=== PATIENT | female | born 1960 | race Caucasian/White ===

== ENCOUNTER 2020-02-29 08:41 | Outpatient (CLI) | payer OTHER, SELFPAY ==
--- NOTE | ~2020-02-29 | NM_ITS ---
EXAMINATION: NM randell stress w perfusion DATE: 02/29/2020 11:42 INDICATION: Shortness of breath. Procedural cardiovascular exam. TECHNIQUE: Rest images were obtained following intravenous administration of 9.2 mCi Tc99m tetrofosmi n (Myoview). The patient was infused intravenously with Lexiscan (Regadenoson). Then, 30.2 mCi Tc99m tetrofosmin (Myoview) was administered intravenously, and stress images were obtained in supine posit ion. Additional prone post stress images were obtained. Data was reconstructed into short axis and ho rizontal and vertical long axis SPECT images. Gated SPECT images were also obtained. COMPARISON: None. FINDINGS: There is no definite reversible or fixed perfusion abnormality to suggest ischemia or infar ction. There is normal left ventricular chamber size, wall motion and ejection fraction. Left ventr icular ejection fraction measures >70%. IMPRESSION: 1. Normal myocardial perfusion at rest and during stress. 2. Left ventricular ejection fraction measuring >70%. Reviewed, dictated and finalized at location B.
--- NOTE | 2020-02-29 08:52 | EST_ITS ---
Patient Info Name: Brianna Mckeon Age: 60 years : 1960 Gender: Female Ht: 67 in Wt: 250 lbs BSA: 2.37 m2 Exam Date: 02/29/2020 9:52 AM Exam Location: [facility] Stress Patient Status: Outpatient Admit Date: 02/29/2020 Staff Ordering Physician: Efra Valdes PA-C Attending Provider: Efra Valdes PA-C Exercise Technologist: Ingrid Mari RDCS Exercise Physician: Aung Garcia DO Exam Type: CA stress randell w NM Study Info Indications Z01.810 - Encounter for preprocedural cardiovascular examination A regadenoson stress test was performed. Summary 1. 1. Negative lexiscan stress test for ischemic ST changes by ECG criteria. 2. 2. Stable hemodynamics throughout the test. 3. 3. Nuclear scan to follow and will be reported separately. Please correlate with it. 4. 4. Patient informed of the above results. Protocol: Lexiscan Stress ECG Details Stage: REST Duration (min): 6 min : 56 sec HR (bpm): 55 SBP (mmHg): 124 DBP (mmHg): 78 Stage: REST Duration (min): 14 min : 32 sec HR (bpm): 61 SBP (mmHg): 124 DBP (mmHg): 78 Stage: STAGE 1 Duration (min): 1 min : 0 sec HR (bpm): 75 SBP (mmHg): 138 DBP (mmHg): 77 Stage: RECOVERY Duration (min): 1 min : 0 sec HR (bpm): 85 SBP (mmHg): 138 DBP (mmHg): 77 Stage: RECOVERY Duration (min): 2 min : 0 sec HR (bpm): 83 SBP (mmHg): 148 DBP (mmHg): 72 Stage: RECOVERY Duration (min): 3 min : 0 sec HR (bpm): 78 SBP (mmHg): 149 DBP (mmHg): 72 Stage: RECOVERY Duration (min): 4 min : 0 sec HR (bpm): 73 SBP (mmHg): 149 DBP (mmHg): 72 Stage: RECOVERY Duration (min): 5 min : 0 sec HR (bpm): 77 SBP (mmHg): 149 DBP (mmHg): 72 Stage: RECOVERY Duration (min): 5 min : 26 sec HR (bpm): 78 SBP (mmHg): 140 DBP (mmHg): 76 Rest HR: 61 bpm Peak HR: 91 bpm Rest Sys BP: 124 mmHg Peak Sys BP: 149 mmHg Max Pred HR: 158 bpm % Max Pred HR: 58 % Target HR: 134 bpm Max RPP: 13,559 bpm*mmHg Termination Reason: Completed protocol Cardiac Symptoms: Shortness of breath Total Time: 1 min : 0 sec Rest Brown BP: 78 mmHg Peak Brown BP: 72 mmHg Total Dose: 0.4 mg Resting ECG Sinus rhythm. Stress ECG No ST changes. Arrhythmias None. Report Signatures
== END 2020-02-29 08:42 | disposition home or self-care (01) ==
PROVIDERS: PCP Family Medicine; Visit Provider Physician Assistant Medical
DX: Z01.810 Encounter for preprocedural cardiovascular examination (principal)
CPT/HCPCS: 78452; 93017; A9502; J2785

== ENCOUNTER 2020-05-28 20:34 | Emergency (ER) | payer OTHER, SELFPAY ==
[2020-05-28 21:03] VITALS: BP 159/83; PULSE 81; RESP 20; TEMP 35.7; O2SAT 95
[2020-05-28 21:46] VITALS: BP 159/83; PULSE 81; RESP 18; TEMP 35.8; O2SAT 95
[2020-05-28] MEDS: TETANUS,DIPHTHERIA,AC PERTUSSIS ADULT (0.5 ML) BOOSTRIX IM (22:32)
--- NOTE | 2020-05-28 23:39 | ED.GENADULT ---
HPI - General Adult General Chief complaint: Wound/Laceration Stated complaint: ANIMAL BITE Time Seen by Provider: 05/28/20 21:54 Source: patient Mode of arrival: ambulatory Limitations: no limitations History of Present Illness HPI narrative: Patient 60-year-old female who presents with dog scratch or bite to the right hand that occurred just prior to arrival patient was attempting to get her dog that had run away when the dog pulled possibly biting or scratching the dorsal surface of the right hand where she now has 3 wounds patient notes mild aching pain worse with touch and activity patient notes her tetanus is not up-to-date patient on arrival resting comfortably does not appear uncomfortable has no other complaints Related Data Home Medications Medication Instructions Recorded Confirmed aspirin 81 mg tablet,delayed 81 mg PO DAILY 07/04/19 release Allergies Allergy/AdvReac Type Severity Reaction Status Date / Time Iodinated Contrast Media Allergy Unknown Hives Verified 05/28/20 21:08 iodine Allergy Unknown Hives Verified 05/28/20 21:08 tramadol Allergy Unknown Nausea Verified 05/28/20 21:08 Contrast Media Allergy Unknown HIVES Uncoded 06/21/18 12:00 Review of Systems Review of Systems: All systems reviewed & are unremarkable except as noted in HPI and below PMFSH Past Medical History Medical History (Updated 05/28/20 @ 23:48 by Bayron Jimenez PA-C) Adopted Breast cyst (~1971) Hepatic steatosis Leiomyoma of uterus Right radial head fracture (03/22/19) Ventral hernia Surgical History Surgical History History of hysterectomy (~2002) History of tonsillectomy (~1967) Social History Social History Smoking status: Smoker, status unknown Alcohol intake: never Exam Narrative: Exam Narrative: GENERAL: Well-appearing, well-nourished, and in no acute distress. HEAD: Normocephalic, atraumatic. EYES: PERRLA and EOMI. ENT: Nares clear, no rhinorrhea or epistaxis. Mucous membranes moist. EXTREMITIES: Normal range of motion. No edema. SKIN: Warm, dry, no rash. Patient with irregular laceration involving the dorsal surface of the right hand measuring 1 cm in length. Patient with 2-1/2 cm irregular laceration dorsal surface right hand. Less than half centimeter smaller superficial laceration of the dorsal surface of the right hand NEURO: No focal deficits. Alert and oriented x3. Neurovascularly intact. Capillary refill less than 2 seconds PSYCH: Normal mood and affect. Course Course Emergency Course: Patient's wounds were repaired in the emergency department wounds were closed with Steri-Strips due to the risk for infection secondary to possible bite as the cause patient otherwise in the room in no distress had tetanus updated provided with reasons to return and agrees to do so if symptoms worsen Vital Signs Vital signs: Vital Signs Temperature 96.3 F L 05/28/20 21:03 Pulse Rate 81 05/28/20 21:03 Respiratory Rate 20 05/28/20 21:03 Blood Pressure 159/83 H 05/28/20 21:03 Pulse Oximetry 95 05/28/20 21:03 Temperature 96.5 F L 05/28/20 21:46 Pulse Rate 81 05/28/20 21:46 Respiratory Rate 18 05/28/20 21:46 Blood Pressure 159/83 H 05/28/20 21:46 Pulse Oximetry 95 05/28/20 21:46 Procedures Laceration Laceration 1: Date: 05/28/20 Time: 23:46 Site: upper extremity Side (If applicable): right Size (cm): 2.5 Description: irregular Depth: simple, single layer Local Anesthetic: other anesthetic Pre-repair: wound explored, irrigated and irrigated extensively ====== Skin Level ====== Skin layer closed with: steri strips ====== Subcutaneous Layer ====== ====== Muscle Layer ====== ====== Tendon Layer ====== Laceration 2: Date: 05/28/20 Time: 23:46 Site:
[2020-05-29 00:06] VITALS: BP 160/85; PULSE 83; RESP 20; TEMP 36.1; O2SAT 96
== END 2020-05-29 00:08 | disposition home or self-care (01) ==
PROVIDERS: Emergency Provider Emergency Medicine; PCP Family Medicine
DX: S61.411A Laceration without foreign body of right hand, initial encounter (principal); X58.XXXA Exposure to other specified factors, initial encounter; Z23 Encounter for immunization
CPT/HCPCS: 12001; 90471; 90715; 99283

== ENCOUNTER 2020-09-08 13:43 | Emergency (ER) | payer OTHER, SELFPAY ==
--- NOTE | ~2020-09-08 | XR_ITS ---
XR finger 4th LT min 2V 09/08/2020 15:11 Indication: Dog bite. Left fourth finger pain. Procedure: 4 views left fourth finger Comparison: 04/07/2019 Findings: Mild polyarticular osteoarthritis. Osteopenia. Moderate soft tissue swelling surrounding th e PIP joint. No foreign bodies. Impression: 1: No acute fracture. Reviewed, dictated and finalized at location A. Impression: 1: No acute fracture.
[2020-09-08 14:16] VITALS: BP 177/81; PULSE 76; RESP 16; TEMP 37; O2SAT 100
--- NOTE | 2020-09-08 14:55 | ED.WOUNDLAC ---
HPI - Wound/Laceration General Chief Complaint: Wound/Laceration Stated Complaint: DOG BITE Source: patient and RN notes reviewed Mode of arrival: ambulatory Limitations: no limitations History of Present Illness HPI narrative: 60-year-old female presents to the [facility] with complaints of a dog bite. Patient reports that last night she was playing with her dog when he mistakenly bit her finger, states the dog is up-to-date on vaccines. Her last tetanus was May 2020. Has an open puncture wound left ring finger. Had already removed her rings. Abrasions noted to the middle finger. Left ring finger swollen. Decreased range of motion of the PIP and DIP. Sensation intact distal to injury with capillary refill under 2 seconds. Related Data Home Medications Medication Instructions Recorded Confirmed aspirin 81 mg tablet,delayed 81 mg PO DAILY 07/04/19 09/08/20 release Allergies Allergy/AdvReac Type Severity Reaction Status Date / Time Iodinated Contrast Media Allergy Unknown Hives Verified 05/28/20 21:08 iodine Allergy Unknown Hives Verified 05/28/20 21:08 tramadol Allergy Unknown Nausea Verified 05/28/20 21:08 Contrast Media Allergy Unknown HIVES Uncoded 06/21/18 12:00 Review of Systems Review of Systems: Narrative: CONSTITUTIONAL: Denies fever, chills, or sweats. EYES: Denies visual changes, redness, or discharge. ENT: Denies rhinorrhea, congestion, sore throat, or otalgia. CARDIOVASCULAR: Denies chest pain, palpitations, or edema. RESPIRATORY: Denies cough or dyspnea. GASTROINTESTINAL: Denies abdominal pain, nausea, vomiting, or diarrhea. GENITOURINARY: Denies dysuria or hematuria. SKIN: Denies rash or itching. Puncture wound left ring finger, abrasions noted middle finger MUSCULOSKELETAL: Denies back pain. Swelling, pain DIP/PIP left ring finger. NEUROLOGIC: Denies headache, numbness, or weakness. PSYCHIATRIC: Denies anxiety or depression. All other systems reviewed are negative, except as documented in HPI. [facility] Past Medical History Medical History (Updated 09/09/20 @ 08:06 by Debbie Wharton) Adopted Breast cyst (~1971) Hepatic steatosis Leiomyoma of uterus Right radial head fracture (03/22/19) Ventral hernia Surgical History Surgical History History of hysterectomy (~2002) History of tonsillectomy (~1967) Social History Social History Smoking status: Smoker, status unknown Alcohol intake: never Comments At the time of my signature, I reviewed and agree with the nursing past medical, surgical, social, and family history. There is no relevant family history pertinent to the patient complaint. Exam Narrative: Exam Narrative: GENERAL: This is a well-nourished, well-developed patient, in no apparent distress. HEAD: normocephalic, atraumatic. EYES: PERRL. Sclera clear/white. Vision is grossly intact. EARS: External ears normal NECK: Neck supple, non-tender. CARDIOVASCULAR: Regular rate and rhythm without murmurs, gallops, or rubs. Capillary refill on all 5 fingers under 2 seconds. RESPIRATORY: Clear to auscultation. Breath sounds equal bilaterally. No wheezes, rales, or rhonchi. GASTROINTESTINAL: Abdomen soft, non-tender. SKIN: warm, intact with no suspicious lesions or rash, good texture and turgor. Puncture wound left ring finger. multiple abrasions noted to ring and middle finger. NEURO: awake, alert, and oriented to person, place and time. There were no obvious focal neurologic abnormalities. EXTREMITIES: No joint tenderness, effusion, or edema noted. BACK: Nontender without deformity. No CVA tenderness. Course Vital Signs Vital signs: Vital Signs Temperature 98.6 F 09/08/20 14:16 Pulse Rate 76 09/08/20 14:16 Respiratory Rate 16 09/08/20 14:16 Blood Pressure 177/81 H 09/08/20 14:16 Pulse Oximetry 100 09/08/20 14:16 Temperature 98.6 F 09/08/20 14:16 Pulse R
== END 2020-09-08 16:03 | disposition home or self-care (01) ==
PROVIDERS: Emergency Provider Nurse Practitioner; PCP Family Medicine
DX: S61.234A Puncture wound without foreign body of right ring finger without damage to nail, initial encounter (principal); W54.0XXA Bitten by dog, initial encounter
CPT/HCPCS: 73140; 99213; G0463

== ENCOUNTER 2023-02-19 09:01 | Outpatient (CLI) | payer MEDICARE, SELFPAY ==
[2023-02-19 17:06] LABS: Basophils Absolute Auto 0.1 K/mm3 (0.0-0.1); Basophils Percent Auto 0.9 % (0.2-1.2); Eosinophils Absolute Auto 0.1 K/mm3 (0-0.3); Eosinophils Percent Auto 1.1 % (0-4.4); Hematocrit 46.5 % (37.0-47.0); Immature Granulocyte Absolute 0.06 K/mm3 (0.00-0.031); Immature Granulocyte Percent A 0.7 % (0-0.5); Lymphocytes Absolute Auto 2.32 K/mm3 (0.9-3.2); Lymphocytes Percent Auto 28.8 % (18.3-44.2); Mean Corpuscular HGB Conc 32.3 g/dl (32-36); Mean Corpuscular Volume 86.8 fl (80-100); Mean Platelet Volume 11.7 fl (7.4-10.4); Monocytes Absolute Auto 0.7 K/mm3 (0.1-0.6); Monocytes Percent Auto 9.1 % (2.6-8.5); Neutrophils Absolute Auto 4.8 K/mm3 (1.3-6.7); Neutrophils Percent Auto 59.4 % (45.5-73.1); Platelet Count Result 241 k/mm3 (150-375); Red Blood Count 5.36 M/mm3 (4.2-5.4); Red Cell Distribution Width 15.1 % (11.5-14.5); White Blood Count 8.1 K/mm3 (4.5-10.0)
[2023-02-19 17:18] LABS: Alanine Aminotransferase 26 U/L (6-35); Albumin Level 4.3 g/dL (3.5-5.1); Alkaline Phosphatase 75 U/L (38-126); Anion Gap 3 mmol/L (8-16); Aspartate Amino Transferase 29 U/L (14-36); Bilirubin,Total 0.5 mg/dL (0.2-1.3); Blood Urea Nitrogen 18 mg/dL (7-17); Calcium 9.4 mg/dL (8.4-10.2); Carbon Dioxide 34 mmol/L (22-30); Chloride 98 mmol/L (98-107); Cholesterol 133 mg/dL (0-200); Estimated Glomerular Filt Rate > 60; Glucose 118 mg/dL (65-110); HDL Direct 46 mg/dL; Potassium 3.4 mmol/L (3.4-5.0); Sodium 135 mmol/L (137-145); Triglycerides 95 mg/dL (<150)
[2023-02-19 17:19] LABS: Hemoglobin A1C 6.5 % (<5.7)
[2023-02-19 17:32] LABS: Creatinine Urine 26.3 mg/dL
[2023-02-19 17:34] LABS: LDL Cholesterol Direct 68 mg/dL
[2023-02-19 17:56] LABS: Thyroid Stimulating Hormone Reflex 0.984 uIU/mL (0.465-4.68)
[2023-02-19 18:06] LABS: MALB Creatinine Ratio < 22.8 mg/g (0-30); Microalbumin Urine Random < 6.0 mg/L (0-16.7)
== END 2023-02-19 09:02 | disposition home or self-care (01) ==
PROVIDERS: PCP Family Medicine; Visit Provider Physician Assistant
DX: E11.9 Type 2 diabetes mellitus without complications (principal); E78.2 Mixed hyperlipidemia; I10 Essential (primary) hypertension
CPT/HCPCS: 36415; 80053; 80061; 82043; 83036; 84443; 85025

== ENCOUNTER → 2023-02-26 10:35 | Outpatient (CLI) | payer MEDICARE, SELFPAY ==
--- NOTE | ~2023-02-26 | CT_ITS ---
EXAMINATION:CT chest high resolution wo ky DATE: 02/26/2023 10:53 INDICATION: Ascending aortic aneurysm without rupture. TECHNIQUE: Computed tomography (CT) of the chest was performed without intravenous contrast. Automate d exposure control and iterative reconstruction technique were employed. The dose-length product (DLP ) was 572.23 mGy-cm. COMPARISON: CT abdomen and pelvis 09/13/2017 FINDINGS: There is mild emphysema. There is minimal atelectasis in the lungs. No pleural effusion. Th e heart size is normal. No pericardial effusion. There is mild aortic atherosclerosis. Ascending aort a measures 3.6 cm, which is normal. There is moderate thoracic spondylosis. IMPRESSION: 1. Mild aortic atherosclerosis. No aneurysm. 2. Mild emphysema. Reviewed, dictated and finalized at location E.
== END ==
PROVIDERS: PCP Physician Assistant; Visit Provider Physician Assistant
DX: I71.40 Abdominal aortic aneurysm, without rupture, unspecified (principal); I70.0 Atherosclerosis of aorta; J43.9 Emphysema, unspecified
CPT/HCPCS: 71250

== ENCOUNTER 2023-04-02 14:25 | Outpatient (CLI) | payer MEDICARE, SELFPAY ==
--- NOTE | 2023-04-02 15:58 | WPDPFTINT ---
PFT Procedure Performed PFT Procedure Performed Spirometry with Pre/Post Bronchodilator Plethysmography (Lung Vol) Diffusing Cap (DLCO) Flow Vol Loop PFT Interpretation This is a pulmonary function test with pre and post-bronchodilator spirometry, plethysmography and diffusing capacity. The test was performed and results interpreted in accordance with the 2019 and 2005 ATS/ERS Task Force guidelines respectively using the Global Lung Function Initiative-2012 reference equations. Patient demonstrated good effort and cooperation. Reproducibility criteria were met. The quality of the pre bronchodilator spirometry maneuver was Grade A and post bronchodilator spirometry maneuver was Grade B. Findings: Spirometry: The contour the inspiratory and expiratory flow tracing are normal. The pre bronchodilator FVC is 3.01 L, 90% predicted. The pre bronchodilator FEV1 is 2.53 L, 98% predicted. The pre bronchodilator FEV1: FVC ratio is 84%. The post bronchodilator FVC is 3.00 L, representing no change. The post bronchodilator FEV1 is 2.45 L, representing a 3% decrease. The post bronchodilator FEV1: FVC ratio is 82%. Plethysmography: The total lung capacity is 4.60 L, 84% predicted. The functional residual capacity is 1.88 L, 60% predicted. The residual volume is 1.59 L, 71% predicted. Diffusing capacity: The diffusing capacity unadjusted for hemoglobin and carboxyhemoglobin is 19.5, 87% predicted. The diffusing capacity adjusted for alveolar volume is 4.29, 101% predicted. Impression: The spirometry is normal without evidence of an obstructive abnormality. There is no significant improvement after inhaling a single dose of albuterol. The total lung capacity and residual volume are normal with a decreased functional residual capacity. This is an abnormal but nonspecific lung volume pattern. The diffusing capacity is normal. There are no prior studies for comparison
== END 2023-04-02 14:26 | disposition home or self-care (01) ==
PROVIDERS: PCP Family Medicine; Visit Provider Physician Assistant
DX: J43.9 Emphysema, unspecified (principal)
CPT/HCPCS: 94060; 94726; 94729

== ENCOUNTER 2023-05-31 06:49 | Emergency (ER) | payer MEDICARE, SELFPAY ==
[2023-05-31 06:51] VITALS: BP 150/81; PULSE 77; RESP 16; TEMP 36.6; O2SAT 100
[2023-05-31 07:22] VITALS: BP 160/79; PULSE 72; RESP 16; O2SAT 99
--- NOTE | 2023-05-31 07:22 | ED.GENADULT ---
HPI - General Adult General Chief complaint: Urogenital-Female Stated complaint: I can't pee and pain in my back Time Seen by Provider: 05/31/23 07:09 History of Present Illness HPI narrative: patient is a 63-year-old female who presents ER with discoloration of her urine. Began this morning. Associated with dysuria and urinary frequency. She feels like she cannot fully empty her bladder. She has mild discomfort in the low back that is aching. No alleviating factors. No fevers or chills or sweats. No nausea or vomiting. Has history kidney stones but this feels different. Related Data Home Medications Medication Instructions Recorded Confirmed aspirin 81 mg tablet,delayed 81 mg PO DAILY 07/04/19 03/19/23 release diphenhydramine 25 1 tablet PO QHS 03/19/23 03/19/23 mg-acetaminophen 500 mg tablet (Tylenol PM Extra Strength) Allergies Allergy/AdvReac Type Severity Reaction Status Date / Time Iodinated Contrast Media Allergy Unknown Hives Verified 05/31/23 07:15 iodine Allergy Unknown Hives Verified 05/31/23 07:15 Contrast Media Allergy Unknown HIVES Uncoded 05/31/23 07:15 Review of Systems Review of Systems: All systems reviewed & are unremarkable except as noted in HPI and below Constitutional: Constitutional: Denies chills and Denies fever(s) Gastrointestinal: Gastrointestinal: Denies abdominal pain, Denies nausea and Denies vomiting Genitourinary: Genitourinary: Reports nocturia, Reports dysuria, Reports pelvic pain and Reports flank pain Musculoskeletal: Musculoskeletal: Reports back pain, Denies joint swelling and Denies muscle cramps PMFSH Past Medical History Medical History Adopted Aortic aneurysm Breast cyst (~1971) Hepatic steatosis Leiomyoma of uterus Right radial head fracture (03/22/19) Ventral hernia Surgical History Surgical History History of back surgery History of hernia repair (~07/30/12) History of hysterectomy (~2002) TAHBSO History of tonsillectomy (~1967) Social History Social History (Updated 03/19/23 @ 07:34 by Eulalia Alonso) Social History: Caffeine-daily Years smoked: 40 Smoking status: Current every day smoker Alcohol intake: current Alcohol use details: occasional Substance use: never Substance use type: does not use Lack of Transportation: No Lack of Food: Never True Current Housing: I Have Housing Concerned About Future Housing: No Difficulty Paying Gas/Electric Bills: No Difficulty Paying for Meds: No Currently Unemployed: No Education: High School Diploma/GED Difficulty w/ Childcare or Family Care: No Living arrangements: with family Exam Narrative: GENERAL: Well-appearing, well-nourished, and in no acute distress. HEAD: Normocephalic, atraumatic. ENT: Mucous membranes moist. CHEST: Clear to auscultation. No respiratory distress. HEART: Regular rate and rhythm. Normal peripheral pulses. Back: No CVA tenderness. Discomfort is located left low lumbar region near the iliac crest. EXTREMITIES: Normal range of motion. No edema. NEURO: No focal deficits. Alert and oriented x3. PSYCH: Normal mood and affect. Course Course Emergency Course: Patient informed of results. Discussed treatment plan. Patient verbalized understanding. Discharge home. Bladder scan with 135 mL, patient has been able to urinate since then. Vital Signs Vital signs: Vital Signs Temperature 97.8 F 05/31/23 06:51 Pulse Rate 77 05/31/23 06:51 Respiratory Rate 16 05/31/23 06:51 Blood Pressure 150/81 H 05/31/23 06:51 Pulse Oximetry 100 05/31/23 06:51 Oxygen Delivery Room Air 05/31/23 06:51 Temperature 97.8 F 05/31/23 06:51 Pulse Rate 72 05/31/23 07:22 Respiratory Rate 16 05/31/23 07:22 Blood Pressure 160/79 H 05/31/23 07:22 Pulse Oximetry 99 05/31/23 07:22 Oxygen Delivery Room Air
[2023-05-31 07:48] LABS: Appearance Urine Turbid (Clear); Bacteria Urine 1+ /hpf; Bilirubin Urine Negative (Negative); Blood Urine 3+ (Negative); Color Urine Dark Yellow (Yellow); Glucose Urine UA Negative (Negative); Ketones Urine Negative (Negative); Leukocyte Esterase Ur 3+ LEU/UL (Negative); Need Manual Microscopic Reviewed; Nitrate Urine Positive (Negative); Non Pathogenic Casts 0-2; Protein Urine 4+ mg/dL (Negative); RBC Urine >100 /hpf (0-2); Squamous Epithelial Cell Urine Few /hpf (Few); WBC Urine >100 /hpf
[2023-05-31 07:49] LABS: Add Urine Microscopic? YES
[2023-05-31] MEDS: KETOROLAC 30 MG/ML VIAL (*BKC) IM (08:07)
[2023-05-31 08:10] VITALS: BP 134/71; PULSE 74; RESP 16; O2SAT 98
== END 2023-05-31 08:24 | disposition home or self-care (01) ==
PROVIDERS: Emergency Medicine; Emergency Provider Emergency Medicine; PCP Family Medicine
DX: N39.0 Urinary tract infection, site not specified (principal); F17.200 Nicotine dependence, unspecified, uncomplicated; Z90.710 Acquired absence of both cervix and uterus; Z90.722 Acquired absence of ovaries, bilateral; Z90.79 Acquired absence of other genital organ(s); Z79.82 Long term (current) use of aspirin
CPT/HCPCS: 81001; 87077; 87086; 87186; 96372; 99283; J1885

== ENCOUNTER 2023-06-09 12:56 | Outpatient (NON) | payer MEDICARE, SELFPAY | END 2023-06-09 12:57 | disposition home or self-care (01) | LOC: ANHGOSHLAB 12:58 | PROVIDERS: PCP Family Medicine; Visit Provider Nurse Practitioner Family | DX: N39.0 Urinary tract infection, site not specified (principal) | CPT/HCPCS: 87086 ==

== ENCOUNTER → 2023-06-17 08:06 | Outpatient (CLI) | payer MEDICARE, SELFPAY ==
--- NOTE | ~2023-06-17 | US_ITS ---
Renal-Bladder ultrasound Clinical History: Abdominal pain Technique: Real-time sonographic imaging of the kidneys and urinary bladder was performed. Findings: The right kidney measures 10.8 cm in length and the left kidney measures 11.4 cm. There is mild left hydronephrosis. No right hydronephrosis. No renal stone evident. Renal cortical echogenicit y is within normal limits. No solid renal mass lesion is identified. Right renal cyst present. The urinary bladder is partially distended at the time of this exam. No intraluminal echoes are ident ified. No abnormal wall thickening is seen. Multiple echogenic, shadowing gallstones are incidentally noted. Impression: Mild left hydronephrosis. Cholelithiasis incidentally noted. Reviewed, dictated and finalized at [facility]. NG STRAP CLOSER Impression: Mild left hydronephrosis. Cholelithiasis incidentally noted.
== END ==
PROVIDERS: PCP Family Medicine; Visit Provider Nurse Practitioner Family
DX: N13.30 Unspecified hydronephrosis (principal)
CPT/HCPCS: 76775

== ENCOUNTER → 2023-07-09 09:41 | Outpatient (CLI) | payer MEDICARE, SELFPAY ==
--- NOTE | ~2023-07-09 | MM_ITS ---
EXAMINATION: MM screening lillie BI w feliciano HISTORY: Screening mammogram TECHNIQUE: Craniocaudal and mediolateral oblique 3-D tomosynthesis images were obtained and synthetic 2-D images were generated. CAD analysis was submitted and interpreted. COMPARISON: No prior mammogram is available for comparison at this institution. BREAST PARENCHYMAL COMPOSITION: There are scattered areas of fibroglandular density. FINDINGS: RIGHT BREAST: No suspicious mass, calcification, or architectural distortion are identified to sugges t malignancy. LEFT BREAST: There are masses in the subareolar aspect of the breast as well as in the anterior/middl e third of the lower breast 5 cm from the nipple. IMPRESSION: 1. Left breast masses. 2. Additional mammographic views and possible breast ultrasound are recommended. BI-RADS Category 0: Incomplete: Needs additional imaging evaluation. Reviewed, dictated and finalized at location A. ING SUPERVISOR IMPRESSION: 1. Left breast masses. 2. Additional mammographic views and possible breast ultrasound are recommended . BI-RADS Category 0: Incomplete: Needs additional imaging evaluation.
--- NOTE | ~2023-07-09 | DEXA_ITS ---
Bone Density Report Name: CARLOS ORTIZ Age: 63 Sex: Female Ethnicity: White Date of : 1960 Indication: postmenopausal; screening for osteoporosis; height loss; prior fracture; hysterectomy; Referring Provider: Andrews Murcia Study: Bone densitometry was performed. Exam Date: July 09, 2023 Accession number: [id number] Bone Density: Region BMD T-score Z-score Classification AP Spine (L1-L4) 1.018 -0.3 1.5 Normal Femoral Neck (Left) 0.776 -0.7 0.9 Normal Total Hip (Left) 0.911 -0.3 1.0 Normal Femoral Neck (Right) 0.763 -0.8 0.8 Normal Total Hip (Right) 0.863 -0.6 0.6 Normal Total Hip Mean 0.887 -0.5 0.8 Normal World Health Organization criteria for BMD impression classify patients as: Normal (T-score at or above -1.0), Osteopenia (T-score between -1.0 and -2.5), or Osteoporosis (T-score at or below -2.5). 10-year Fracture Risk: FRAX not reported because: All T-scores for Spine Total, Hip Total, Femoral Neck at or above -1.0 Clinical Information Provided by Patient: Has had a low trauma fracture Smokes Has the following medical conditions: Hysterectomy, mild emphysema but no treatments Patient maximum height was 68 Menopause Age: 46 No regular weight bearing exercise Drinks caffeinated beverages Onset of menses at age 8 Number of children 3 Impression: The patient has normal bone mass. The patient has risk factors, including: smoking, previous fracture. Discussion: BONE DENSITY IS ABOVE THE MINIMUM DESIRABLE LEVEL AT ALL SKELETAL SITES TESTED. This patient?s bone mineral density is above the minimum desirable level (T-score -1.0 or better) at all sites measured. The patient should follow a healthful lifestyle (good nutrition with adequate calcium and vitamin D, and appropriate weight-bearing exercise). Follow-Up: Consider repeating this study in 5 years or sooner if there is some new clinical indication. Reported by: [facility] on 07/09/2023 10:14:00 AM. Reviewed, dictated and finalized at location A. [facility]
== END ==
PROVIDERS: PCP Physician Assistant; Visit Provider Physician Assistant
DX: Z12.31 Encounter for screening mammogram for malignant neoplasm of breast (principal); Z78.0 Asymptomatic menopausal state; R92.8 Other abnormal and inconclusive findings on diagnostic imaging of breast
CPT/HCPCS: 77063; 77067; 77080

== ENCOUNTER → 2023-08-13 07:30 | Outpatient (CLI) | payer MEDICARE, SELFPAY ==
--- NOTE | ~2023-08-13 | MMUS_ITS ---
EXAMINATION: MM diagnostic lillie LT w feliciano, US breast LT limited HISTORY: Left breast masses reported on 07/09/2023 screening mammogram TECHNIQUE: Additional 3-D tomosynthesis images of the left breast were performed and synthetic 2-D im ages were generated. CAD analysis was submitted and interpreted. High resolution limited left breast ultrasound was performed at subareolar area and upper outer quadrant. COMPARISON: 07/09/2023 bilateral screening mammogram FINDINGS: MAMMOGRAPHIC FINDINGS: Small circumscribed benign-appearing low-density opacities are noted in the upper outer quadrant, lik marilee small cysts or lymph nodes. There is a benign-appearing low-density circumscribed approximately 6 mm opacity in the lateral subar eolar area. ULTRASOUND: 2:00 7 cm from nipple: 1.9 x 5.8 x 3.6 mm circumscribed sonolucency with a thin septation, without maharaj spicious shadowing, consistent benign septated cyst 3:00 5 cm from nipple: 1.7 x 2.7 x 2.8 mm circumscribed sonolucency, consistent with small cyst Subareolar area: 4.2 x 6.7 x 7.2 mm circumscribed parallel sonolucency consistent with simple cysts. No suspicious mass or shadowing is detected in the subareolar area are upper quadrant. IMPRESSION: 1. Benign cysts; no mammographic or ultrasound evidence of malignancy 2. Routine annual mammographic screening is recommended BI-RADS Category 2: Benign finding(s). Reviewed, dictated and finalized at location B. NOGRAPHER GEOLOGICAL IMPRESSION: 1. Benign cysts; no mammographic or ultrasound evidence of malignancy 2. Routine annual mammographic screening is recommended BI-RADS Category 2: Benign finding(s).
== END ==
PROVIDERS: PCP Family Medicine; Visit Provider Nurse Practitioner Family
DX: N63.20 Unspecified lump in the left breast, unspecified quadrant (principal); R92.8 Other abnormal and inconclusive findings on diagnostic imaging of breast
CPT/HCPCS: 76642; 77061; 77065; G0279

== ENCOUNTER 2023-12-23 07:00 | Outpatient (CLI) | payer MEDICARE, SELFPAY ==
--- NOTE | ~2023-12-23 | MR_ITS ---
MR cervical spine wo con Ordering provider: Alissa Reid, KITCHENHAND-C History: 63 years Female with . Cervical radiculopathy . Comparison: None. Technique: MRI cervical spine without contrast. FINDINGS: CERVICAL SPINAL CORD/CRANIAL CERVICAL JUNCTION: Normal in signal and caliber. CERVICAL VERTEBRAL BODIES: Normal height and alignment. Normal marrow signal. DISK SPACES: Narrowing of the disc C5-C6. C2-C3: No stenosis. . C3-C4: No stenosis. C4-C5: No stenosis. C5-C6: Mild spinal canal stenosis secondary to broad based disc bulge. bilateral narrowing of the fo ramina and the root compression. C6-C7: No stenosis. C7-T1: No stenosis. VISUALIZED PARASPINOUS SOFT TISSUES: Normal. IMPRESSION: 1. No acute osseous abnormality. 2. Diffuse disc bulge at the level of C5-C6 with bilateral narrowing of the foramina and nerve root compression. Mild spinal canal stenosis. Reviewed, dictated and finalized at location A. IMPRESSION: 1. No acute osseous abnormality. 2. Diffuse disc bulge at the level of C5-C6 with bilateral narrowing of the fo ramina and nerve root compression. Mild spinal canal stenosis.
== END 2023-12-23 07:01 ==
LOC: MICIMG 07:00
PROVIDERS: PCP Family Medicine; Visit Provider Nurse Practitioner Family
DX: M50.322 Other cervical disc degeneration at C5-C6 level (principal); M48.02 Spinal stenosis, cervical region
CPT/HCPCS: 72141

== ENCOUNTER 2024-03-07 14:39 | Outpatient (CLI) | payer MEDICARE, SELFPAY ==
--- NOTE | ~2024-03-07 | CT_ITS ---
EXAMINATION:CT lung screening DATE: 03/07/2024 14:58 INDICATION: Personal history of nicotine dependence. Current smoker with 55 pack year history. TECHNIQUE: Computed tomography (CT) of the chest was performed without intravenous contrast. Automate d exposure control and iterative reconstruction technique were employed. The dose-length product (DLP ) was 69.46 mGy-cm. COMPARISON: Chest CT 02/26/2023 FINDINGS: There is mild emphysema. There is mild dependent atelectasis bilaterally. No pleural effusi on. The heart size is normal. There are coronary artery calcifications. No pericardial effusion. Ther e is moderate thoracic spondylosis. IMPRESSION: 1. Lung-RADS category 1: Negative. Continue annual screening with noncontrast low-dose chest CT in 12 months. Reviewed, dictated and finalized at location A. IMPRESSION: 1. Lung-RADS category 1: Negative. Continue annual screening with noncontrast l ow-dose chest CT in 12 months.
== END 2024-03-07 14:40 | disposition home or self-care (01) ==
LOC: MICIMG 14:39
PROVIDERS: PCP Physician Assistant; Visit Provider Physician Assistant
DX: Z12.2 Encounter for screening for malignant neoplasm of respiratory organs (principal); Z87.891 Personal history of nicotine dependence
CPT/HCPCS: 71271

== ENCOUNTER 2024-10-18 09:09 | Outpatient (CLI) | payer MEDICARE, SELFPAY ==
--- NOTE | ~2024-10-18 | MR_ITS ---
EXAMINATION: MR foot LT wo con DATE: 10/18/2024 09:38 INDICATION: Left foot stress fracture with 5 weeks of pain at the lateral forefoot. TECHNIQUE: Magnetic resonance imaging (MRI) of the left fore/mid foot was performed without intraveno us contrast. Sequences included sagittal T1-weighted FSE, sagittal fluid sensitive FSE STIR, coronal PD-weighted FS FSE, coronal T1-weighted FSE, axial PD-weighted FS FSE, and axial PD-weighted FSE. COMPARISON: None FINDINGS: Bone alignment is normal. There is mild polyarticular osteoarthritis at multiple joints in the mid an d forefoot. There is subarticular edema-like signal change at the naviculocuneiform and third and fou rth tarsal metatarsal joints. No erosions to suggest an inflammatory arthritis. Small low signal inte nsity bone island at the base of the first proximal phalanx. Bone marrow signal is otherwise normal t hroughout with no stress reaction, fracture or pathologic marrow replacing process. Physiologic amoun t fluid in the joint spaces. No tenosynovitis, bursitis or other abnormal fluid collections. The Lisf ranc ligament complex as well as the collateral ligament complex at the metatarsophalangeal and inter phalangeal joints are normal. The visualized portions of the flexor and extensor tendons are normal. Visualized intrinsic musculature of the foot is unremarkable. There are some subcutaneous edema over the dorsum of the forefoot. IMPRESSION: 1. Mild polyarticular osteoarthritis in the mid and forefoot. No stress reaction/fracture or other ac squaxin osseous abnormality. Reviewed, dictated and finalized at location A. IMPRESSION: 1. Mild polyarticular osteoarthritis in the mid and forefoot. No stress reactio n/fracture or other acute osseous abnormality.
== END 2024-10-18 09:10 | disposition home or self-care (01) ==
LOC: MICIMG 09:09
PROVIDERS: PCP Family Medicine; Visit Provider Podiatrist Foot & Ankle Surgery
DX: S92.309A Fracture of unspecified metatarsal bone(s), unspecified foot, initial encounter for closed fracture (principal); X58.XXXA Exposure to other specified factors, initial encounter; M19.072 Primary osteoarthritis, left ankle and foot
CPT/HCPCS: 73718

== ENCOUNTER 2024-11-01 09:36 | Emergency (ER) | payer MEDICARE, SELFPAY ==
--- NOTE | ~2024-11-01 | XR_ITS ---
XR foot RT min 3V Ordering provider: Janette Car APRN History: . Lat Rt ankle/foot pain/swelling, twisted walking last P.M. . Comparison: None. FINDINGS: BONES: No acute fracture or dislocation. JOINT SPACES: Osteoarthritic changes of the first metatarsophalangeal joint. No tarsal coalition. SOFT TISSUES: Normal. Calcaneus spur. IMPRESSION: No acute osseous abnormality of the right foot. Osteoarthritic changes of the first metatarsophalangeal joint. Calcaneal spur. Reviewed, dictated and finalized at location A.
--- NOTE | ~2024-11-01 | XR_ITS ---
XR ankle RT min 3V Ordering provider: Janette Car APRN History: . Lat Rt ankle/foot pain/swelling, twisted walking last P.M. . Comparison: None. FINDINGS: BONES: No acute fracture or dislocation. JOINT SPACES: Normal. SOFT TISSUES: Normal. Calcaneal spur. IMPRESSION: No acute osseous abnormality of the right ankle. Reviewed, dictated and finalized at location A.
[2024-11-01 09:51] VITALS: BP 104/60; PULSE 73; RESP 16; TEMP 36.5; O2SAT 100
--- NOTE | 2024-11-01 10:22 | ED.LOWEXIN ---
HPI - Extremity Injury (Lower) General Chief Complaint: Extremity Injury, Lower Stated Complaint: INJURED R ANKLE/FOOT Source: patient Mode of arrival: ambulatory Limitations: no limitations History of Present Illness HPI Narrative: Patient is a 64-year-old female who presents to urgent care with complaints right ankle pain, swelling, and bruising. She states that she rolled her ankle while walking yesterday. She has been resting, icing, and taking ibuprofen [id number] pain and endorses having some relief. Related Data Home Medications ?Medication ?Instructions ?Recorded ?Confirmed ?Last Taken ?Type aspirin 81 mg tablet,delayed 81 mg PO DAILY 07/04/19 11/01/24 Unknown History release diphenhydramine 25 1 tablet PO QHS 03/19/23 11/01/24 Unknown History mg-acetaminophen 500 mg tablet (Tylenol PM Extra Strength) mecobalamin (vitamin B12) 1,000 1,000 mcg PO DAILY 03/03/24 11/01/24 Unknown History mcg lozenges ascorbic acid (vitamin C) 1,000 mg 1 g PO DAILY 09/05/24 11/01/24 Unknown History capsule calcium 333 mg 1 tablet PO TID 09/05/24 11/01/24 Unknown History (carbonate)-magnesium 133 mg-zinc 5 mg (sulfate) tablet melatonin 10 mg capsule 10 mg PO QHS 09/05/24 11/01/24 Unknown History Allergies Allergy/AdvReac Type Severity Reaction Status Date / Time Iodinated Contrast Media Allergy Unknown Hives Verified 09/05/24 09:50 iodine Allergy Unknown Hives Verified 09/05/24 09:50 Contrast Media Allergy Unknown HIVES Uncoded 09/05/24 09:50 Review of Systems Review of Systems: CONSTITUTIONAL: Denies body aches, fever, chills EYES: Denies visual changes ENT: Denies rhinorrhea, congestion CARDIOVASCULAR: Denies chest pain, palpitations, or edema. RESPIRATORY: Denies cough or dyspnea. SKIN: Denies rash, itching, or wounds. MUSCULOSKELETAL: Reports right ankle pain. NEUROLOGIC: Denies headache, numbness, tingling, or weakness. All systems reviewed & are unremarkable except as noted in HPI and below PMFSH Past Medical History Medical History Adopted Breast cyst (~1971) Leiomyoma of uterus Ventral hernia Hepatic steatosis Right radial head fracture (03/22/19) Surgical History Surgical History History of back surgery History of hernia repair (~07/30/12) History of tonsillectomy (~1967) History of hysterectomy (~2002) [facility] Social History Social History Social History: Caffeine-daily Smoking packs per day: 0.5 Smoking cigarettes per day: 10.0 Years smoked: 50 Smoking pack-years: 25.00 Smoking status: Current every day smoker Tobacco type: cigarettes Alcohol intake: current Alcohol use details: seldom maybe once or twice a year Substance use: never Substance use type: does not use Lack of Transportation: No Lack of Food: Never True Current Housing: I Have Housing Concerned About Future Housing: No Difficulty Paying Gas/Electric Bills: No Difficulty Paying for Meds: No Currently Unemployed: No Education: High School Diploma/GED Difficulty w/ Childcare or Family Care: No Living arrangements: with family Comments At time of signature, I have reviewed and agree with nursing past medical, surgical, social and family history unless otherwise noted. Please see nursing chart for further information. There is no relevant family history pertinent to the presenting complaint. Exam Narrative: MUSCULOSKELETAL EXAM GENERAL: Well-appearing, well-nourished, and in no acute distress. HEAD: Normocephalic, atraumatic. NECK: Supple. CHEST: Speaks in full sentences. No respiratory distress. HEART: Regular rate and rhythm. Normal and equal peripheral pulses. EXTREMITIES: Right ankle has normal strength and sensation, decreased range of motion with flexion/extension and endorses pain with movement to lateral ankle. Edema and ecchymosis noted to lateral ankle. No open wounds, skin tenting, or obvious deformity; alignment normal, pulse palpable and equal bilaterally, skin warm, dry, pink. Capillary refill less than 3 seconds. Distal sensation intact. SKIN: Warm, dry, no rash. NEURO: Alert and oriented x3. PSYCH: Normal mood and affect Course Course Level of Care: Express Care Visit Vital Signs Vital signs: Vital Signs Temperature 97.7 F 11/01/24 09:51 Pulse Rate 73 11/01/24 09:51 Respiratory Rate 16 11/01/24 09:51 Blood Pressure 104/60 11/01/24 09:51 Pulse Oximetry 100 11/01/24 09:51 Temperature 97.7 F 11/01/24 09:51 Pulse Rate 73 11/01/24 09:51 Respiratory Rate 16 11/01/24 09:51 Blood Pressure 104/60 11/01/24 09:51 Pulse Oximetry 100 11/01/24 09:51 Reviewed. MDM - Extremity Injury (Lower) MDM Narrative Medical decision making narrative: Discussed physical exam findings and xray. Shekhar wrap applied for support. Advised supportive measures and signs/symptoms to go to the ER. Pt is appropriate for outpatient treatment and follow up. Differential Diagnosis Differential diagnosis: Likely ankle sprain and strain and ankle fracture Critical Care Time Critical Care Time Critical Care Time: No Discharge Plan Discharge Clinical Impression: Ankle sprain Qualifiers: Encounter type: initial encounter Laterality: right Patient Disposition: Home Condition: Stable Instructions: Ankle Sprain (DC) Additional Instructions: Use Shekhar wrap for support. Rest. Avoid running or excessive walking or anything that worsens the symptoms Tylenol every 8 hours as needed You can alternate with ibuprofen Alternate ice/heat to the site. Lidocaine or salon pas pain patch or use pain cream like icy/hot or biofreeze. Follow up with your primary care provider as needed in 1 week Go to the ER for worsening symptoms or concerns Patient Language: Cambodian Prescriptions: No Action aspirin 81 mg tablet,delayed release (DR/EC) 81 mg PO DAILY (DME) blood-glucose meter [OneTouch Verio Flex meter] Misc See Rx Instructions .Route Qty: 1 0RF Rx Instructions: As directed (DME) blood-glucose meter [OneTouch Verio Flex Start] Kit See Rx Instructions .Route Qty: 1 0RF Rx Instructions: As directed (DME) New CAP with supplies. See Rx Instructions .Route .MEDSUPPLY Qty: 1 0RF Rx Instructions: CPAP (E0601) 11cm EPR 2 CPAP Supplies/Mask (headgear/ tubing/filters) DX Code: G47.33 - Obstructive sleep apnea (adult) (pediatric) Length of Need: Lifetime DME: [facility] Link patient to our office. Ivonne Triplett, PTARICK: [phone] diphenhydramine-acetaminophen [Tylenol PM Extra Strength] 25-500 mg tablet 1 tablet PO QHS mecobalamin (vitamin B12) 1,000 mcg lozenge 1,000 mcg PO DAILY Rx Instructions: allow to dissolve in mouth OR may chew lightly before swallowing ascorbic acid (vitamin C) 1,000 mg capsule 1 g PO DAILY calcium carb-mag ox-zinc sulf 333-133-5 mg tablet 1 tablet PO TID Rx Instructions: administer with a meal melatonin 10 mg capsule 10 mg PO QHS semaglutide 2 mg/dose (8 mg/3 mL) pen injector 2 mg subcut WEEKLY Qty: 3 8RF (DME) lancets [OneTouch UltraSoft 2 Lancet] 30 gauge misc See Rx Instructions .Route Qty: 100 0RF Rx Instructions: As directed levothyroxine 100 mcg tablet 100 mcg PO DAILY Qty: 90 1RF furosemide 40 mg tablet See Rx Instructions .ROUTE .COMPLEX Qty: 90 1RF Dose Instruction: TAKE 1 TABLET BY MOUTH ONCE DAILY IN THE MORNING Rx Instructions: TAKE 1 TABLET BY MOUTH ONCE DAILY IN THE MORNING (DME) OneTouch Verio test strips Strip See Rx Instructions .ROUTE .COMPLEX Qty: 100 1RF Dose Instruction: USE DIRECTED Rx Instructions: Use to check BS BID. lisinopril-hydrochlorothiazide 20-25 mg tablet See Rx Instructions .ROUTE .COMPLEX Qty: 90 0RF Dose Instruction: Take 1 tablet by mouth once daily Rx Instructions: Take 1 tablet by mouth once daily simvastatin 20 mg tablet 20 mg PO DAILY Qty: 90 1RF Follow-up/Referrals: Rose Kothari MD [Primary Care Provider] - Time of Disposition: 10:24
== END 2024-11-01 10:27 | disposition home or self-care (01) ==
PROVIDERS: PCP Family Medicine
DX: S93.401A Sprain of unspecified ligament of right ankle, initial encounter (principal); X50.9XXA Other and unspecified overexertion or strenuous movements or postures, initial encounter; Y93.01 Activity, walking, marching and hiking; F17.210 Nicotine dependence, cigarettes, uncomplicated; K76.0 Fatty (change of) liver, not elsewhere classified; Z79.82 Long term (current) use of aspirin
CPT/HCPCS: 73610; 73630; 99213; G0463

== ENCOUNTER 2025-02-27 08:21 | Outpatient (CLI) | payer MEDICARE, SELFPAY ==
--- NOTE | ~2025-02-27 | MM_ITS ---
EXAMINATION: MM screening lillie BI w feliciano HISTORY: Screening TECHNIQUE: Craniocaudal and mediolateral oblique 3-D tomosynthesis images were obtained and synthetic 2-D images were generated. CAD analysis was submitted and interpreted. COMPARISON: Mammogram from 07/11/2023 BREAST PARENCHYMAL COMPOSITION: There are scattered areas of fibroglandular density. FINDINGS: There is no evidence of suspicious mass, calcification, or architectural distortion to suggest malignancy. There has been no suspicious interval change. IMPRESSION: 1. No mammographic evidence of malignancy. Recommend routine screening mammography in one year. BI-RADS Category 2: Benign finding(s) Reviewed, dictated and finalized at location Q. IMPRESSION: 1. No mammographic evidence of malignancy. Recommend routine screening mammogra phy in one year. BI-RADS Category 2: Benign finding(s)
== END 2025-02-27 08:22 | disposition home or self-care (01) ==
LOC: MICIMG 08:21
PROVIDERS: PCP Family Medicine; Visit Provider Family Medicine
DX: Z12.31 Encounter for screening mammogram for malignant neoplasm of breast (principal)
CPT/HCPCS: 77063; 77067

== ENCOUNTER 2025-06-06 08:41 | Outpatient (CLI) | payer MEDICARE, SELFPAY ==
--- NOTE | 2025-06-06 09:00 | NEURO_ITS ---
Impression: # Complains of numbness of hands. # Bilateral Carpal Tunnel Syndrome, left more than right. # Right Ulnar Neuropathy across the elbow. # Normal Needle/ EMG exam. Nerve Conduction Studies ?Stim Site NR Peak (ms) P-T Amp (?V) Site1 Site2 Delta-P (ms) Dist (cm) Damian (m/s) Left Median Anti Sensory (2-3nd Digit) Wrist ? 4.3 17.0 Wrist 2-3nd Digit 4.3 14.0 33 Wrist ? 5.2 13.9 Wrist 2-3nd Digit 4.3 14.0 33 Right Median Anti Sensory (2-3nd Digit) Wrist ? 4.5 23.0 Wrist 2-3nd Digit 4.5 14.0 31 Wrist ? 4.4 26.1 Wrist 2-3nd Digit 4.5 14.0 31 Left Radial Anti Sensory (Base 1st Digit) Wrist ? 1.7 19.5 Wrist Base 1st Digit 1.7 0.0 Right Radial Anti Sensory (Base 1st Digit) Wrist ? 2.2 13.3 Wrist Base 1st Digit 2.2 0.0 Left Ulnar Anti Sensory (5th Digit) Wrist ? 2.4 52.4 Wrist 5th Digit 2.4 14.0 58 Right Ulnar Anti Sensory (5th Digit) Wrist ? 2.4 39.9 Wrist 5th Digit 2.4 14.0 58 ?Stim Site NR Onset (ms) O-P Amp (mV) Site1 Site2 Delta-0 (ms) Dist (cm) Damian (m/s) Left Median Motor (Abd Poll Brev) Wrist ? 4.8 2.3 Elbow Wrist 4.1 26.0 63 Elbow ? 8.9 8.4 Right Median Motor (Abd Poll Brev) Wrist ? 4.4 4.7 Elbow Wrist 4.3 26.0 60 Elbow ? 8.7 3.7 Left Ulnar Motor (Abd Dig Minimi) Wrist ? 2.7 7.9 A Elbow Wrist 5.3 30.0 57 A Elbow ? 8.0 6.1 B Elbow Wrist 4.0 22.0 55 B Elbow ? 6.7 6.5 Right Ulnar Motor (Abd Dig Minimi) Wrist ? 2.7 8.3 A Elbow Wrist 5.7 29.0 51 A Elbow ? 8.4 7.9 B Elbow Wrist 3.9 21.0 54 B Elbow ? 6.6 7.3 F Wave Studies ?NR F-Lat (ms) L-R F-Lat (ms) Left Median (Mrkrs) (Abd Poll Brev) ? 31.72 1.05 Right Median (Mrkrs) (Abd Poll Brev) ? 32.77 1.05 Left Ulnar (Mrkrs) (Abd Dig Min) ? 28.75 0.47 Right Ulnar (Mrkrs) (Abd Dig Min) ? 29.22 0.47 Electromyography ?Side Muscle Nerve Root Ins Act Fibs Amp Dur Recrt Comment Right 1stDorInt Ulnar C8-T1 Nml Nml Nml Nml Nml Right Ext Indicis Radial (Post Int) C7-8 Nml Nml Nml Nml Nml Right Ext Digitorum Radial (Post Int) C7-8 Nml Nml Nml Nml Nml Right BrachioRad Radial C5-6 Nml Nml Nml Nml Nml Right PronatorTeres Median C6-7 Nml Nml Nml Nml Nml Right Abd Poll Brev Median C8-T1 Nml Nml Nml Nml Nml Right ABD Dig Min Ulnar C8-T1 Nml Nml Nml Nml Nml Right FlexPolLong Median (Ant Int) C7-8 Nml Nml Nml Nml Nml Right Abd Poll Long Radial (Post Int) C7-8 Nml Nml Nml Nml Nml Left 1stDorInt Ulnar C8-T1 Nml Nml Nml Nml Nml Left Ext Indicis Radial (Post Int) C7-8 Nml Nml Nml Nml Nml Left Ext Digitorum Radial (Post Int) C7-8 Nml Nml Nml Nml Nml Left BrachioRad Radial C5-6 Nml Nml Nml Nml Nml Left PronatorTeres Median C6-7 Nml Nml Nml Nml Nml Left Abd Poll Brev Median C8-T1 Nml Nml Nml Nml Nml Left ABD Dig Min Ulnar C8-T1 Nml Nml Nml Nml Nml Left FlexPolLong Median (Ant Int) C7-8 Nml Nml Nml Nml Nml Left Abd Poll Long Radial (Post Int) C7-8 Nml Nml Nml Nml Nml c
== END 2025-06-06 08:42 | disposition home or self-care (01) ==
PROVIDERS: PCP Family Medicine; Visit Provider Plastic Surgery
DX: G56.03 Carpal tunnel syndrome, bilateral upper limbs (principal); G56.21 Lesion of ulnar nerve, right upper limb
CPT/HCPCS: 95886; 95911